=== PATIENT | female | born 2000 | race Two or more races ===

== ENCOUNTER 2025-10-06 15:25 | Inpatient (IN) | payer MEDICAID, SELFPAY ==
[2025-10-06] VITALS (26 sets, daily range): BP systolic 106–139; BP diastolic 57–90; PULSE 70–112; RESP 16–97; TEMP 36.7; O2SAT 96–100; BMI 25.8
[2025-10-06] MEDS: RINGERS LACTATED 1000 ML 1,000 ML 999 ML IV (16:45)
--- NOTE | 2025-10-06 18:09 | XR_ITS ---
Examination: Biophysical profile, ultrasound Date and time of exam: October 06, 2025, 1904 hours INDICATIONS: Late term, post dates, pelvic contractions today Technique: Multiple transabdominal sonographic images of the pelvis abdomen obtained. Attention is directed to the breathing movement, gross body movement, amniotic fluid volume and tone. Findings: Amniotic fluid index 6.1 cm Total biophysical profile is 8 of 8. breathing movement is 2. Gross body movement is 2. tone is 2. Qualitative amniotic fluid volume is 2 Impression: Biophysical profile is 8 of 8.
--- NOTE | 2025-10-06 21:14 | XR_ITS ---
EXAMINATION: age Limited TECHNIQUE: Transabdominal sonographic images pelvis Date and time: October 06, 2025, 1005 hours INDICATION: Post dates with pelvic contractions today FINDINGS: Viable intrauterine gestation cephalic presentation spine maternal left Cardiac motion 166 bpm Estimated weight 3492 g Estimated age 37 weeks 5 days IMPRESSION: Viable intrauterine gestation cephalic presentation
[2025-10-06 21:59] LABS: Basophils # (Auto) 0.1 Thou/mm3 (0.0-0.2); Basophils % (Auto) 0 % (0-2.5); Eosinophils # (Auto) 0.0 Thou/mm3 (0.0-0.5); Eosinophils % (Auto) 0 % (0-10); Hematocrit 38.8 % (36.0-46.0); Hemoglobin 13.7 g/dL (12.0-16.0); Immature Granulocytes Auto 0.09 Thou/mm3 (0.00-0.00); Lymphocytes # (Auto) 1.7 Thou/mm3 (1.0-4.8); Lymphocytes % (Auto) 10 % (10-50); Mean Corpuscular HGB Conc 35.3 g/dl (31.0-37.0); Mean Corpuscular Hemoglobin 30.5 pg (25.0-35.0); Mean Corpuscular Volume 86 fL (80-100); Monocytes # (Auto) 1.0 Thou/mm3 (0.0-0.8); Monocytes % (Auto) 6 % (0-12); Neutrophils # (Auto) 14.7 Thou/mm3 (1.8-7.7); Neutrophils % (Auto) 84 % (37-80); Nucleated Red Blood Cell # 0.00 Thou/mm3 (0.00-0.00); Nucleated Red Blood Cell % 0 /100 WBC (0); Platelet Count 210 Thou/mm3 (140-440); RDW Standard Deviation 40.5 fL (36.4-46.3); Red Blood Count 4.49 Miln/mm3 (4.00-5.20); White Blood Count 17.5 Thou/mm3 (3.6-11.0)
[2025-10-06 22:01] LABS: Collection Type, Urine Clean Catch
[2025-10-06] MEDS: RINGERS LACTATED 1000 ML 1,000 ML 125 ML IV (22:08)
[2025-10-06 22:17] LABS: Alanine Aminotransferase 12 U/L (10-49); Albumin, Serum 4.5 gm/dL (3.5-5.0); Albumin/Globulin Ratio 1.7 (1.2-2.2); Alkaline Phosphatase 200 U/L (46-116); Anion Gap 12 (7-16); Aspartate Amino Transferase 18 U/L (0-34); BUN/Creatinine Ratio 9 Ratio (12-20); Bilirubin,Total 0.7 mg/dL (0.3-1.2); Blood Urea Nitrogen 6 mg/dL (9-23); Calcium 9.2 mg/dL (8.3-10.6); Calcium (Corrected) 9.2 mg/dL (8.5-10.1); Carbon Dioxide 21.5 mMol/L (20.0-31.0); Chloride 106 mMol/L (98-107); Creatinine (Component) 0.7 mg/dL (0.6-1.3); Estimated Creatinine Clearance 127.5 mL/min (>60); Globulin 2.7 gm/dL (2.3-3.5); Glucose 95 mg/dL (74-106); LDH (Lactate Dehydrogenase) 187 U/L (120-246); Osmolality,Calculated 275 (275-295); Potassium 3.7 mMol/L (3.4-5.1); Sodium 139 mMol/L (136-145); Total Protein 7.2 gm/dL (5.7-8.2); Uric Acid 3.7 mg/dL (3.1-7.8); eGFR > 60 See Note
[2025-10-06 22:24] LABS: Bilirubin,Urine Negative (Negative); Blood,Urine Negative (Negative); Clarity,Urine Clear (Clear/Hazy); Color,Urine Yellow (Lt Yel-Yel); Glucose, Urine Negative (Negative); Ketones,Urine 2+ (Negative); Leukocyte Esterase,Urine Negative (Negative); Nitrite,Urine Negative (Negative); PH,Urine 6.5 (5.0-7.0); Protein,Urine Trace (Neg - Trace); RBC,Urine 3 /hpf (0-3); Specific Gravity,Urine 1.026 (1.001-1.035); Squamous Epithelial Cell,Urine 1 /hpf (0-5); Urobilinogen,Urine Negative mg/dL (0.0-1.0); WBC,Urine 1 /hpf (0-5)
[2025-10-06 22:35] LABS: Syphilis Nonreactive (Nonreactive)
[2025-10-06 22:36] LABS: Fibrinogen 494 mg/dL (175-375); INR 0.9 (0.9-1.3); Partial Thromboplastin Time 26.9 Seconds (22.0-36.0); Prothrombin Time 9.8 Seconds (9.0-12.2)
[2025-10-06] MEDS: fentaNYL CIT INJ 50 mCg/ML AMP 2ML 100 MCG IVP (22:45)
[2025-10-07] VITALS (143 sets, daily range): BP systolic 106–141; BP diastolic 56–93; PULSE 63–131; RESP 15–20; TEMP 36.8–37.2; O2SAT 89–100
[2025-10-07] MEDS: OXYTOCIN in NS 30 units 30 UNIT/500 ML BAG IV (01:49)
[2025-10-07] MEDS: RINGERS LACTATED 1000 ML 1,000 ML 125 ML IV ×3 (02:48→07:51)
--- NOTE | 2025-10-07 06:05 | ESHP_ITS ---
Documentation for date of: 10/07/25 OB Labor/Induct. HPI History of Present Illness Chief complaint: contractions : 2 Para: 0 Term pregnancies: 0 pregnancies: 0 Living children: 0 History of Abortions: Spontaneous and Elective: 1 History of Vaginal deliveries: 0 History of sections: No History of : No Date of last menstrual period: 12/25/24 ANDREA: 10/01/25 Gestational Age (weeks): 40 Gestational Age (days): 6 Gestational age based on last menstrual period: 40 History of present illness: Patient presents for regular, painful ctx. No LOF. No vaginal bleeding. Normal movement. No fevers/chills. History of Present Dating criteria: LMP confirmed by 2nd trimester US Adequate Care: Yes Ultrasounds: normal mid trimester US (06/14/2025) Narrative: Hx of TAB 05/[address] Nik Ivory Labs Maternal Blood Type: O Pos Labs: Positive: Rubella Titre and Group Beta Strep, Negative: RPR, Hepatitis B, HIV, Chlamydia and Gonorrhea and Unknown: Herpes Type 1 and Herpes Type 2 Narrative: CF carrier screen negative NIPT negative x3 1hr glucola 62 Review of Systems Review of Systems Narrative Review of Systems: Review of Systems Systems Reviewed: All systems reviewed, normal except as documented Constitutional Constitutional: Denies body ache(s), Denies chills, Denies fever(s) and Denies headache(s) ENT Ears, Nose, Mouth, and Throat: Denies headache(s) and Denies vertigo Cardiovascular Cardiovascular: Denies chest pain, Denies palpitations, Denies dyspnea and Denies syncope Respiratory Respiratory: Denies cough, Denies dyspnea Gastrointestinal Gastrointestinal: Denies nausea and Denies vomiting Neurologic Neurologic: Denies convulsions, Denies headache(s), Denies other visual disturbances, Denies syncope and Denies vertigo Past Medical History Family History OTHER FAMILY HX: non-contributory Surgical History SURGICAL: Negative Section OTHER SURGICAL HX: wisdom teeth and ankle surgery Social History SOCIAL: Boyfriend is supportive. No tobacco/ETOH/illicit drugs Past Medical History Comments PMH COMMENT: benign PMhx Meds Home Medications and Allergies Home Medications ?Medication ?Instructions ?Recorded ?Confirmed ?Type vit no.95-ferrous tab PO 12/03/25 History fumarate 28 mg-folic acid 800 mcg tablet () Allergies Allergy/AdvReac Type Severity Reaction Status Date / Time No Known Allergies Allergy Verified 10/06/25 17:37 OB Exam Physical Exam Vital signs: Temp Pulse Resp BP Pulse Ox 98.4 F 79 18 138/70 H 99 10/07/25 02:10 10/07/25 05:38 10/07/25 02:10 10/07/25 05:38 10/07/25 06:02 Narrative: General: well developed, well nourished, no acute distress, conversant Cardiac: normal heart rate Lungs: breathing without distress Abdomen: soft, gravid, non-tender, no rebound or guarding Extremities: no edema BLE Detailed Labor and Delivery Exam Dilation (cm): 2 Effacement (%): 80 Cervix position: posterior station: -2 Presentation: Vertex Membranes: intact Baseline heart rate: 150 monitor accelerations: None monitor decelerations: None penitentiary variability: Minimal (3-5) (minimal until 1L IVF then moderate) Contraction frequency (min): q2-4min OB Results Labs 10/06/25 21:40 10/06/25 21:40 Labs: Short CBC 10/06/25 Range/Units 21:40 WBC 17.5 H (3.6-11.0) Thou/mm3 Hgb 13.7 (12.0-16.0) g/dL Hct 38.8 (36.0-46.0) % Plt Count 210 (140-440) Thou/mm3 BMP 10/06/25 21:40 Sodium 139 Potassium 3.7 Chloride 106 Carbon Dioxide 21.5 BUN 6 L Creatinine 0.7 Glucose 95 Calcium 9.2 Liver Function 10/06/25 Range/Units 21:40 Total Bilirubin 0.7 (0.3-1.2) mg/dL AST 18 (0-34) U/L ALT 12 (10-49) U/L Alkaline Phosphatase 200 H (46-116) U/L Albumin 4.5 (3.5-5.0) gm/dL Urine 10/06/25 Range/Units 21:50 Urine Color Yellow (Lt Yel-Yel) Urine Clarity Clear (Clear/Hazy) Urine pH 6.5 (5.0-7.0) Ur Specific Jewett 1.026 (1.001-1.035) Urine Protein Trace (Neg - Trace) Urine Glucose (UA) Negative (Negative) Impressions Impression: Examination: Biophysical profile, ultrasound Date and time of exam: October 06, 2025, 1904 hours INDICATIONS: Late term, post dates, pelvic contractions today Technique: Multiple transabdominal sonographic images of the pelvis abdomen obtained. Attention is directed to the breathing movement, gross body movement, amniotic fluid volume and tone. Findings: Amniotic fluid index 6.1 cm Total biophysical profile is 8 of 8. breathing movement is 2. Gross body movement is 2. tone is 2. Qualitative amniotic fluid volume is 2 Impression: Biophysical profile is 8 of 8. --- EXAMINATION: age Limited TECHNIQUE: Transabdominal sonographic images pelvis Date and time: October 06, 2025, 1005 hours INDICATION: Post dates with pelvic contractions today FINDINGS: Viable intrauterine gestation cephalic presentation spine maternal left Cardiac motion 166 bpm Estimated weight 3492 g Estimated age 37 weeks 5 days IMPRESSION: Viable intrauterine gestation cephalic presentation OB Assessment & Plan Assessment and Plan (1) Prolonged latent phase of labor: Status: Acute Assessment and plan: Sp is a 25yo with SIUP at 40&6wk presenting in latent labor with SCE 2/80/-2, unchanged over 3 hours. However, there was initially a long period of minimal variability that improved after 1L IVF to moderate and BPP testing (/) revealed borderline oligohydramnios, JJ 6.1cm. Given post-dates gestation, safest course of action is augmentation of latent labor and patient is amenable. Vitals wnl, benign exam. PMhx/ significant for: -Post-dates gestation -borderline oligohydramnios -PNC with Tamms Plan: -Admit to L&D -Establish IV, routine labs -CEFM -Clear liquid diet -Confectionery Laboratory Manager/consent re: and augmentation with IV pitocin -GBS status: positive. Abx ppx. -Anticipate -Safe to proceed (2) Post-dates : Status: Acute (3) Oligohydramnios in rios in third trimester: Status: Acute (2) Post-dates Qualifiers: Post-term type: 40-42 weeks gestation Qualified Code(s): O48.0 - Post-term
--- NOTE | 2025-10-07 06:29 | PD.LDPN ---
Documentation for date of: 10/07/25 OB Labor Progress Note Pelvic Exam Dilation (cm): 4 Effacement (%): 70 station: -2 Amniotic membrane status: Ruptured Contractions Monitor mode: External Contraction frequency: q2-4min Contraction pattern: Tetanic Contraction intensity: Moderate Status status: Category ll Assessment and Plan Comments: Called by RN for subtle late FHR decels that occurred after epidural. Pitocin was at 2mu. I requested for pitocin to be turned off and I came to bedside. FHR decels resolved with discontinuation of pitocin. Epidural is working well, patient comfortable. AROM performed, clear fluid, IUPC and FSE placed. SCE now /-2. Will allow time for expectant management after AROM and re-initiate pitocin if FHR tracing is Cat I. Discussed all with patient and answered all questions. Will continue to closely monitor. Safe to proceed Margo Forte MD
[2025-10-07] MEDS: Ampicillin Inj 2,000 MG in SODIUM CHLORIDE 0.9% (POP) 100 ML 200 MG IV (07:00)
--- NOTE | 2025-10-07 07:22 | PD.LDPN ---
Documentation for date of: 10/07/25 OB Labor Progress Note Pelvic Exam Dilation (cm): 4-5 Effacement (%): 70 station: -2 Amniotic membrane status: Ruptured Contractions Monitor mode: External Contraction frequency: 2-6 Contraction pattern: Tetanic Contraction intensity: Moderate Status status: Category ll Assessment and Plan Comments: Patient doing well, comfortable with epidural Normotensive, afebrile SCE: 4-5/70/-2 Cat II FHRT for occasional non-sustained late decels (but more early decels), occasions of min marina but more mod marina, +accels Patient ardently desires vaginal delivery Will work on position changes with peanut ball If Cat I FHRT emerges, will re-initiate IV pitocin Will continue to closely monitor Safe to proceed
--- NOTE | 2025-10-07 09:27 | ESPR_ITS ---
Documentation for date of: 10/07/25 OB Labor Progress Note Pelvic Exam Dilation (cm): 4-5 Effacement (%): 70 station: -2 Amniotic membrane status: Ruptured Contractions Monitor mode: Internal Contraction frequency: 3-6 Contraction pattern: Tetanic Contraction intensity: Moderate Status status: Category ll Assessment and Plan Comments: Patient remains comfortable with epidural. Vitals wnl, afebrile. Cat II FHRT for occasional late decels, min-mod marina, +accels Inadequate MVUs SCE: 4-5/70/-2. No cervical change 2hr after last exam. Discussed with patient recommendation for PLTCS for inability to augment with Cat II FHRT remote from delivery. She is amenable. -Counseled/consented re: section. Discussed all r/b/a to include: bleeding (possible need for blood transfusion), infection (subcutaneous, deeper layers or uterine with possible need for prolonged admission or re-admission for IV antibiotics, I&D with wound packing, etc), injury to nearby structures such as bladder, bowel, ureters, blood vessels, nerves with possible need for re- operation, pain, injury to baby, hysterectomy, DVT/PE, . Answered all questions to patient and their support person's satisfaction. -IV abx ppx: ancef 2g IV and azithromycin 500mg IV -Nursing and anesthesia team aware of plan for section. Will proceed to OR when team is ready
[2025-10-07] MEDS: AZITHROMYCIN INJ 500 MG in SODIUM CHLORIDE 0.9% 250 ML 250 ML 250 MG IV (09:54)
[2025-10-07] MEDS: FAMOTIDINE INJ 10 MG/ML VIAL 2 ML 20 MG IV (10:38)
[2025-10-07] MEDS: ceFAZolin/D5W 2 GM IV 2 GM/100 ML BAG IV (10:39)
[2025-10-07] MEDS: METOCLOPRAMIDE INJ 5 MG/ML VIAL 2 ML 10 MG IVP (10:39)
--- NOTE | 2025-10-07 11:56 | PD.GYNPROC ---
Operative Note - TUBULAR SPLITTING MACHINE TENDER Procedure Date of procedure: 10/07/25 Procedure Performed: Primary low transverse section Indication: Sp is a 25yo with SIUP at 40w6d who presented to L&D with contractions and was in latent labor, SCE 2/80/-2 that was unchanged over 3 hours. However, initially there was minimal variability of the FHRT that resolved to moderate when she received IVF. In addition, JJ was noted 6.1cm, which is borderline oligohydramnios. She was admitted for augmentation of latent labor, but when pitocin was initiated, there were recurrent late FHR decels. Off of pitocin, she did not progress past 4-5cm and so she was counseled on PLTCS for inability to augment related to Cat II FHRT remote from delivery and she was amenable. Pre-Op diagnosis: SIUP at 40w6d Late term gestation Borderline oligohydramnios Cat II FHRT remote from delivery with inability to augment Post-Op diagnosis: SIUP at 40w6d Late term gestation Borderline oligohydramnios Cat II FHRT remote from delivery with inability to augment Anesthesia type: Epidural Fluids: crystalloid Fluid amount (mL): 2,000 Urine output (mL): 100 Specimen: other (placenta and cord not sent to pathology) Estimated blood loss (ml): 700 Findings: Clear amniotic fluid. Male infant in cephalic presentation, apgars 8/9, 3700g, time of 11:11 on 10/07/25. Normal appearing uterus, fallopian tubes and ovaries. Complications: none Narrative: After obtaining informed consent, the patient was taken to the operating room. There was reassuring heart rate tracing prior. Epidural was in place. A miles catheter was in place. Bilateral sequential compression devices were placed. She was then prepped and draped in the normal sterile fashion in the dorsal supine position with left lateral tilt. A timeout was performed to confirm patient name, date of , procedure and indication. The team was in agreement. Epidural anesthesia was found to be adequate using an Allis clamp. Anceph 2g IV x1 and Azithromycin 500mg IV x1 were given for prophylaxis. A Pfannenstiel skin incision was then made with the scalpel and carried through to the underlying layer of fascia. The fascia was incised in the midine and the incision was extended laterally bluntly. The superior and inferior aspects of the fascial incision were dissected off of the underlying rectus muscles bluntly. The peritoneum was entered digitally and the rectus muscles were then in the midline. The peritoneal incision was then extended superiorly and inferiorly with good visualization of the bladder. An Gama retractor was placed. The lower uterine segment was scored in a transverse fashion with the scalpel. The uterus was then entered bluntly and the incision was extended with traction with clear amniotic fluid noted. The 's head was elevated to the level of the incision. Fundal pressure was applied. The head was delivered atraumatically in the OA position. The anterior shoulder, posterior shoulder and corpus were delivered without difficulty. The nose and mouth were suctioned with bulb suction and cord was clamped x2 and cut. Infant was vigorous. The infant was handed off to the awaiting nursing team. Cord blood obtained for typing. The placenta was then removed with uterine massage and cord traction. The uterus was exteriorized and cleared of all clot and debris. The uterine incision was repaired with 0-monocryl suture in a running locking fashion. A second layer of O-monocryl was used to closed the hysterotomy incision in an imbricating fashion. The uterine incision was inspected and hemostasis was noted. Standard IV pitocin was given with good tone achieved and maintained. The posterior cul-de-sac was suctioned and the uterus returned to the abdomen. The gutters were cleared of all clot. Gama retractor was removed. The peritoneum was closed using a 3-0 vicryl suture in running fashion. The rectus muscles were inspected and small areas of oozing were cauterized. The fascia was reapproximated with 0-Vicryl suture in a running fashion. The subcutaneous tissue was then copiously irrigated. Sharda's fascia was reapproximated in 2 layers using 3-0 vicryl suture in a running fashion. The skin was reapproximated with 4-0 monocryl suture in running subcuticular fashion. The incision was cleaned with a wet lap and dried with a dry lap. Haofmtysf-yfmddpexqzd-zjsc bandage was applied overlying the incision and activated according to fiberglass technician instructions. Fundus was firm at the umbilicus. Sponge, lap and needle counts were correct x2. The procedure was without complications and the patient tolerated the procedure well. She was taken to recover further on Labor and Delivery, in stable condition. Surgical staff Operation Date: 10/07/25 10:15 Case Staff KILN TESTER: Franc Townsend RN First Assistant: Clemente Zambrano Diagnosis Discharge Diagnosis (1) delivery delivered: Status: Acute (2) Category II heart rate tracing during labor and delivery: Status: Acute (3) Oligohydramnios in rios in third trimester: Status: Acute (4) Post-dates : Status: Acute (5) Prolonged latent phase of labor: Status: Acute Problem List Completed Was Problem List Reviewed/Reconciled?: Yes (4) Post-dates Qualifiers: Post-term type: 40-42 weeks gestation Qualified Code(s): O48.0 - Post-term
[2025-10-07] MEDS: KETOROLAC INJ 30 MG/ML VIAL IVP ×2 (13:34→18:04)
[2025-10-07] MEDS: OXYTOCIN in NS 20 units 20 UNIT/1,000 ML BAG 125 UNIT IV (19:51)
[2025-10-07] MEDS: DOCUSATE SOD 100 MG CAPSULE PO (19:51)
[2025-10-07 20:58] LABS: Basophils # (Auto) 0.0 Thou/mm3 (0.0-0.2); Basophils % (Auto) 0 % (0-2.5); Eosinophils # (Auto) 0.0 Thou/mm3 (0.0-0.5); Eosinophils % (Auto) 0 % (0-10); Hematocrit 31.1 % (36.0-46.0); Hemoglobin 10.6 g/dL (12.0-16.0); Immature Granulocytes Auto 0.04 Thou/mm3 (0.00-0.00); Lymphocytes # (Auto) 1.5 Thou/mm3 (1.0-4.8); Lymphocytes % (Auto) 10 % (10-50); Mean Corpuscular HGB Conc 34.1 g/dl (31.0-37.0); Mean Corpuscular Hemoglobin 30.3 pg (25.0-35.0); Mean Corpuscular Volume 89 fL (80-100); Monocytes # (Auto) 1.1 Thou/mm3 (0.0-0.8); Monocytes % (Auto) 7 % (0-12); Neutrophils # (Auto) 12.6 Thou/mm3 (1.8-7.7); Neutrophils % (Auto) 82 % (37-80); Nucleated Red Blood Cell # 0.00 Thou/mm3 (0.00-0.00); Nucleated Red Blood Cell % 0 /100 WBC (0); Platelet Count 143 Thou/mm3 (140-440); RDW Standard Deviation 42.2 fL (36.4-46.3); Red Blood Count 3.50 Miln/mm3 (4.00-5.20); White Blood Count 15.4 Thou/mm3 (3.6-11.0)
[2025-10-08] MEDS: KETOROLAC INJ 30 MG/ML VIAL IVP (00:31)
[2025-10-08 04:00] VITALS: BP 106/66; PULSE 88; RESP 16; TEMP 36.9; O2SAT 99
[2025-10-08 07:52] VITALS: BP 118/72; PULSE 92; RESP 18; TEMP 37.1; O2SAT 98
--- NOTE | 2025-10-08 08:46 | ESPR_ITS ---
Subjective Subjective Interval history: Delivery type: Patient doing well this morning. No acute complaints. Ambulating, tolerating p.o., and voiding without difficulty. HTN/Pre-E screen negative: No CP, SOB, AMAYA, visual changes, RUQ pain. : Yes Lochia: diminishing Bowel: Flatus + / BM + UOP: Voiding freely Exam Vital Signs Temp Pulse Resp BP Pulse Ox O2 Del Method 98.4 F 88 16 106/66 99 Room Air 10/08/25 04:00 10/08/25 04:00 10/08/25 04:00 10/08/25 04:00 10/08/25 04:00 10/07/25 23:15 Constitutional Constitutional: no acute distress Routine HEENT Exam Head: Present normocephalic and atraumatic Eye: Present EOMI and PERRL ENT: Present mucous membranes moist Routine Neck Exam Neck: Present supple and trachea midline Routine Respiratory Exam Respiratory: Present chest non-tender, lungs clear, normal breath sounds and no resp distress Routine Cardiovascular Exam Cardiovascular: Present RRR Routine Abdominal Exam Abdominal: Present soft and normoactive bowel sounds Routine Extremities Exam Extremities: Present full ROM Routine Skin Exam Skin: Present intact, dry and warm Routine Neurological Exam Neurological: Present alert, oriented X3 and CN II-XII intact Routine Psychiatric Exam Psychiatric: Present normal affect and normal thought process Objective Labs 10/07/25 20:12 10/06/25 21:40 Labs: Laboratory Results - last 24 hr 10/07/25 20:12 WBC 15.4 H RBC 3.50 L Hgb 10.6 L D Hct 31.1 L MCV 89 MCH 30.3 MCHC 34.1 RDW Std Deviation 42.2 Plt Count 143 D Neut % (Auto) 82 H Lymph % (Auto) 10 Mcmullen % (Auto) 7 Eos % (Auto) 0 Baso % (Auto) 0 Neut # (Auto) 12.6 H Lymph # (Auto) 1.5 Mcmullen # (Auto) 1.1 H Eos # (Auto) 0.0 Baso # (Auto) 0.0 Immature Gran # (Auto) 0.04 H Absolute Nucleated RBC 0.00 Immature Gran % 0 Nucleated RBC % 0 Assessment & Plan Problem List (1) delivery delivered: Status: Acute Assessment and plan: 1. Continue routine /post-op care 2. Labs reviewed, cbc appropriate 3. Remove dressing/Gunter 4. Encourage to ambulate, shower 5. Encourage PO intake, breast feeding (2) Category II heart rate tracing during labor and delivery: Status: Acute (3) Oligohydramnios in rios in third trimester: Status: Acute (4) Post-dates : Status: Acute (5) Prolonged latent phase of labor: Status: Acute Time Spent With Patient Time: Total time spent is greater than 50% in coordination of care (as documented) at patient's floor/unit and/or counseling patient:
[2025-10-08] MEDS: DOCUSATE SOD 100 MG CAPSULE PO ×2 (09:30→21:22)
[2025-10-08] MEDS: PRENATAL VITAMIN/FE FUM/FA TABLET 1 TAB PO (09:30)
[2025-10-08] MEDS: HYDROcodone/APAP 5/325 TABLET 1 TAB PO ×2 (09:33→16:55)
[2025-10-08] MEDS: IBUPROFEN TAB 400 MG TABLET 800 MG PO ×2 (14:18→21:21)
[2025-10-08 16:40] VITALS: BP 114/73; PULSE 90; RESP 18; TEMP 36.7; O2SAT 97
[2025-10-08 19:45] VITALS: BP 125/80; PULSE 81; RESP 18; TEMP 36.8; O2SAT 97
[2025-10-09 03:52] VITALS: BP 118/80; PULSE 83; RESP 18; TEMP 36.9; O2SAT 96
[2025-10-09] MEDS: IBUPROFEN TAB 400 MG TABLET 800 MG PO (05:33)
[2025-10-09 08:05] VITALS: BP 135/78; PULSE 85; RESP 18; TEMP 36.9; O2SAT 96
[2025-10-09] MEDS: HYDROcodone/APAP 5/325 TABLET 1 TAB PO (09:02)
[2025-10-09] MEDS: DOCUSATE SOD 100 MG CAPSULE PO (09:02)
[2025-10-09] MEDS: SIMETHICONE 80 MG CHEW PO (09:02)
[2025-10-09] MEDS: PRENATAL VITAMIN/FE FUM/FA TABLET 1 TAB PO (09:02)
--- NOTE | 2025-10-09 11:48 | PC.SS ---
MEDTRONICS TECHNICIAN conducted bedside contact with the patient to address nursing referral indicating patient possessed history of anxiety.? MEDTRONICS TECHNICIAN introduced self and role.? At bedside with patient was [place] STERN.? Patient gave permission for FOB to be present during discussion.? Patient confirmed possessing history of anxiety.? Per patient has not been diagnosed with anxiety nor prescribed medication for mood disorder.? Patient reports that level of anxiety is not impairing daily functioning.? Patient is gainfully employed.? Patient reports no current possession of anxiety.? FOB states no concerns with patient?s emotional status.? Milton is the patient?s first child.? delivered via .? OB services provided by [facility]. ?Patient reports compliance with OB appointments.? Patient is receiving SNAP.? Patient is not aligned with WIC or TANF.? Patient denies history of alcohol/drug use.? Patient denies episodes of domestic violence.? Patient has access to appropriate supplies and equipment.? FOB will provide transportation upon discharge.? Patient describes possessing support system consisting of spouse and extended family.? MEDTRONICS TECHNICIAN provided community resources to include [employer] and [employer].? No further intervention required at this time, social worker psychiatric will be available to address any further concerns.? MEDTRONICS TECHNICIAN updated bedside nurse.?
--- NOTE | 2025-10-09 14:07 | ESDS_ITS ---
DS: Providers Provider Date of admission: 10/06/25 21:10 Primary care physician: Physician No Primary/Family Admitting Provider: Margo Forte MD Attending Provider on Admission: Hubert Salazar MD Consults: 10/07/25 11:50 Referral Routine Comment: Attending Provider on DC: Una Hays MD Discharging Provider: Una Hays MD DS: Diagnosis Discharge Diagnosis (1) delivery delivered: Status: Acute (2) Oligohydramnios in rios in third trimester: Status: Acute (3) Category II heart rate tracing during labor and delivery: Status: Acute Problem List Completed Was Problem List Reviewed/Reconciled?: Yes Summary/Hosp Course Brief History: Patient presents for regular, painful ctx. No LOF. No vaginal bleeding. Normal movement. No fevers/chills. Peripartum Data Delivery Method: Low Transverse Episiotomy Description: None Procedures: Procedures Operation Date: 10/07/25 10:15 Actual Procedure Side Surgeon p in OB Not Applicable Margo Forte MD complications: none Status at Discharge Cognitive/behavioral status at discharge: Patient has no/ complaints Headache no Blurry vision no Chest pain no Palpitations no Shortness of breath no Nausea or vomiting or constipation no Back pain no Dysuria no Dizziness no calf pain no She is voiding spontaneously after catheter removal yes Passing flatus yes Lochia minimal yes alertx 3 Functional status at discharge: independent ambulation Overall status at discharge: patient is progressing back to baseline Time Spent with Patient Time attestation: Total time spent providing and/or coordinating discharge services: Time spent: Less than 30 minutes Exam Vital Signs Temp Pulse Resp BP Pulse Ox O2 Del Method 98.4 F 85 18 135/78 H 96 Room Air 10/09/25 08:05 10/09/25 08:05 10/09/25 08:05 10/09/25 08:05 10/09/25 08:05 10/09/25 08:05 Narrative Exam alert x3 chest clear CVS RRR NO thyromegaly Uterus is nontender Uterus is firm/ appropriate size Just below the umbilicus Bowel sounds present Abdomen soft no hernias noted/no CVAT Incision CDI No drainage Appropriately tender No calf tenderness Edema mild Discharge Plan Plan Patient Disposition: HOME (Self Care) Patient condition on transfer: Stable Prescriptions/Referrals Prescriptions/Med Rec: New hydrocodone-acetaminophen 5-325 mg Tablet 1 tab PO Q6H MDD 4 tablets PRN (Reason: Patient rated pain 7 to 8) 7 Days Qty: 15 0RF docusate sodium 100 mg Capsule 100 mg PO BID 10 Days Qty: 20 0RF ibuprofen 800 mg tablet 800 mg PO Q8HR 10 Days Qty: 30 0RF Continued PNV no.95-ferrous fumarate-FA [] 28 mg iron- 800 mcg tablet PO Patient Comments: take 1 tablet by mouth once daily Referrals: No Primary/Family,Physician [Primary Care Provider] Patient/Caregiver Discharge Instructions Discharge Activity: activity as tolerated and other Other Discharge Activity Instructions:: Follow up with OB in 1 week vaginal rest and no heavy lifting more than 10 pounds for 6 weeks, no driving while taking narcotic. keep incision clean and dry, do not submerge. Other Discharge Diet Instructions: regular Education Materials: After Delivery Concerns, Breast Care After , After a , C Section Dc Print Language: Venezuelan Activity Restrictions/Additional Instructions: follow up with your obgyn at [place] in 1 to 2 weeks for incision check, call clinic to schedule appointment Stand Alone Forms: [facility] Award Info., Patient Portal Info Letter Discharge Order Discharge Orders: Discharge (Routine); Ordered 10/09/25 Ordered By: Una Hays Planned Discharge Date 10/09/25
== END 2025-10-09 15:47 | disposition home or self-care (01) | DRG 540 ==
LOC: S4SX 10-07 13:48 → S4NX 10-07 18:28
PROVIDERS: Admitting Provider Obstetrics & Gynecology; Visit Provider Obstetrics & Gynecology
PROC: 10D00Z1 Extraction of Products of Conception, Low, Open Approach (ICD-10-PCS; CPT 59514; principal; 2025-10-07 10:00)
DX: O48.0 Post-term pregnancy (principal); Z3A.40 40 weeks gestation of pregnancy; O63.0 Prolonged first stage (of labor); O41.03X0 Oligohydramnios, third trimester, not applicable or unspecified; Z37.0 Single live birth; O99.824 Streptococcus B carrier state complicating childbirth; O76 Abnormality in fetal heart rate and rhythm complicating labor and delivery
CPT/HCPCS: 36415; 59025; 59409; 76815; 76819; 80053; 81001; 83615; 84550; 85025; 85384; 85610; 85730; 86780; 86850; 86900; 86901; 94762; A4217; A4314; A4649; J0290; J0456; J0689; J1885; J2210; J2250; J2274; J2590; J2765; J2795; J3010; J3490; J7050; J7120; A9270; J2270